=== PATIENT | female | born 1965 | race African-American/Black ===

== ENCOUNTER 2024-03-22 13:18 | Inpatient (IN) | payer OTHER, MEDICAID ==
[~2024-03-22 13:18] MED LIST: Iopamidol-370 76% 500 ML MDV (1 ML CHARGE) ONE
[2024-03-22 14:24] LABS: Hematocrit 34.8 % (36.0-47.0); Hemoglobin 11.7 g/dL (12.0-16.0); Mean Corpuscular HGB CONC 33.6 g/dL (32.0-36.0); Mean Corpuscular Hemoglobin 26.2 pg (27.0-31.0); Mean Corpuscular Volume 77.9 fL (78.0-98.0); Mean Platelet Volume 10.5 fL (7.4-10.4); Platelet Count 137 10x3/uL (130-400); RBC Distribution Width 14.9 % (11.5-14.5); Red Blood Cell (RBC) Count 4.47 mill/uL (4.20-5.40)
[2024-03-22 14:26] LABS: Bacteria/HPF None Seen HPF (None Seen); Bilirubin Negative (Negative); Blood, Urine Negative (Negative); CAUTI Indications for Culture Pelvic or flank pain; Clarity Clear (Clear); Glucose, Urine (Dipstick) Normal (Negative); Ketone, Urine Negative (Negative); Leukocyte Negative Leu/uL (Negative); Nitrite Negative (Negative); Protein, Urine (Dipstick) Negative (Neg-Trace); RBC/HPF 0-3 HPF (0-3); Specific Gravity, Urine 1.003 (1.002-1.036); Squamous Epithelial 0-3 HPF (0-3); Urobilinogen Normal mg/dL (Less than 2); WBC/HPF 0-3 HPF (0-3); pH, Urine 6.5 (5.0-9.0)
[2024-03-22 14:27] LABS: Urine Culture Reflex No No
[2024-03-22 14:39] LABS: ALT (SGPT) 26 U/L (8-55); AST (SGOT) 22 U/L (5-34); Albumin 3.4 g/dL (3.5-5.0); Alkaline Phosphatase 119 U/L (40-110); Anion Gap 14 mmol/L (10-20); BUN (Urea Nitrogen) 9 mg/dL (9.8-20.1); Bilirubin, Total 0.4 mg/dL (0.2-1.2); Calc. Creatinine Clearance 0 mL/min (70-130); Calcium 10.2 mg/dL (7.8-10.44); Carbon Dioxide 27 mmol/L (22-29); Chloride 101 mmol/L (98-107); Estimated GFR 75; Globulin 2.8 g/dL (2.4-3.5); Glucose 90 mg/dL (70-105); Lipase 17 U/L (8-78); Magnesium 1.6 mg/dL (1.6-2.6); Protein, Total 6.2 g/dL (6.0-8.3); Sodium 138 mmol/L (136-145)
[2024-03-22 14:41] LABS: Troponin I 0.014 ng/mL (< 0.028)
[2024-03-22 14:46] LABS: Band 4 % (5-11); Lymphocytes 28 % (21-51); Microcytosis SLIGHT = 6-15 cells HPF (0-5); Monocytes 10 % (0-10); Neutrophil 53 % (42-75); Nucleated RBC (Manual Ct) 1 % (0); Platelet Adequacy Comment Platelets Normal; Polychromasia SLIGHT = 2-3 cells HPF (0-2); Reactive Lymphocytes 5 % (0-10); Toxic Granulation SLIGHT; Vacuoles SLIGHT
[2024-03-22] MEDS ORDERED: Acetaminophen 325 MG TAB PO PRN (17:05)
[2024-03-22] MEDS ORDERED: Morphine 2 MG/ML VIAL SLOW IVP PRN (17:06)
[2024-03-22] MEDS ORDERED: Morphine 4 MG/ML VIAL SLOW IVP PRN (17:08)
[2024-03-22] MEDS ORDERED: Enoxaparin 60 MG (0.6 mL) SYRINGE ONE (17:28)
[2024-03-22 18:55] VITALS: BMI 47.8
[2024-03-22] MEDS: Famotidine 20 MG TAB PO SCH (20:40)
[2024-03-22] MEDS: Ondansetron ODT 4 MG TAB PO PRN (20:41)
[2024-03-23 02:55] LABS: Hematocrit 35.3 % (36.0-47.0)
[2024-03-23 06:50] LABS: Hematocrit 35.1 % (36.0-47.0); Hemoglobin 11.9 g/dL (12.0-16.0); Mean Corpuscular HGB CONC 33.9 g/dL (32.0-36.0); Mean Corpuscular Hemoglobin 25.7 pg (27.0-31.0); Mean Corpuscular Volume 75.8 fL (78.0-98.0); Mean Platelet Volume 9.5 fL (7.4-10.4); Platelet Count 129 10x3/uL (130-400); RBC Distribution Width 15.1 % (11.5-14.5); Red Blood Cell (RBC) Count 4.63 mill/uL (4.20-5.40)
[2024-03-23 07:05] LABS: Anion Gap 16 mmol/L (10-20); BUN (Urea Nitrogen) 8 mg/dL (9.8-20.1); Calc. Creatinine Clearance 87 mL/min (70-130); Calcium 10.7 mg/dL (7.8-10.44); Carbon Dioxide 25 mmol/L (22-29); Chloride 102 mmol/L (98-107); Estimated GFR 46; Glucose 95 mg/dL (70-105); Sodium 139 mmol/L (136-145)
[2024-03-23 08:12] LABS: Burr Cells SLIGHT = 2-5 cells HPF (0-1); Lymphocytes 25 % (21-51); Macrocytosis SLIGHT = 6-15 cells HPF (0-5); Monocytes 10 % (0-10); Neutrophil 65 % (42-75); Platelet Adequacy Comment Platelets Normal; Polychromasia SLIGHT = 2-3 cells HPF (0-2)
[2024-03-23] MEDS: Enoxaparin 120 MG/0.8 ML SYRINGE SC SCH (09:25)
[2024-03-23] MEDS: Lactated Ringer's 1,000 ML IV SCH ×2 (09:27→20:17)
[2024-03-23] MEDS ORDERED: Albuterol 200 PUFF INH INH PRN (15:55)
[2024-03-23] MEDS ORDERED: Prochlorperazine Maleate 5 MG TAB PO PRN (15:55)
[2024-03-23] MEDS: Dexamethasone 4 MG TAB PO SCH (15:56)
[2024-03-23] MEDS: Atorvastatin Calcium 40 MG TAB PO SCH (20:17)
[2024-03-23] MEDS: busPIRone HCl 10 MG TAB PO SCH (20:18)
[2024-03-23] MEDS: Benztropine 1 MG TAB PO SCH (20:18)
[2024-03-24] MEDS: Levothyroxine Sodium 112 MCG TAB PO SCH (05:29)
[2024-03-24 06:09] LABS: Hematocrit 34.4 % (36.0-47.0); Hemoglobin 11.6 g/dL (12.0-16.0); Mean Corpuscular HGB CONC 33.7 g/dL (32.0-36.0); Mean Corpuscular Hemoglobin 26.1 pg (27.0-31.0); Mean Corpuscular Volume 77.5 fL (78.0-98.0); Mean Platelet Volume 10.1 fL (7.4-10.4); Platelet Count 134 10x3/uL (130-400); RBC Distribution Width 14.7 % (11.5-14.5); Red Blood Cell (RBC) Count 4.44 mill/uL (4.20-5.40)
[2024-03-24 06:15] LABS: Anion Gap 15 mmol/L (10-20); BUN (Urea Nitrogen) 6 mg/dL (9.8-20.1); Calc. Creatinine Clearance 139 mL/min (70-130); Calcium 10.4 mg/dL (7.8-10.44); Carbon Dioxide 21 mmol/L (22-29); Chloride 106 mmol/L (98-107); Estimated GFR 81; Glucose 159 mg/dL (70-105); Potassium 4.7 mmol/L (3.5-5.1); Sodium 137 mmol/L (136-145)
[2024-03-24 06:35] LABS: Band 5 % (5-11); Hypochromia SLIGHT = 6-15 cells HPF (0-5); Lymphocytes 8 % (21-51); Microcytosis SLIGHT = 6-15 cells HPF (0-5); Monocytes 2 % (0-10); Neutrophil 84 % (42-75); Platelet Adequacy Comment Platelets Normal; Polychromasia SLIGHT = 2-3 cells HPF (0-2)
[2024-03-24] MEDS ORDERED: Furosemide 40 MG TAB PO SCH (09:00)
[2024-03-24] MEDS: Ezetimibe 10 MG TAB PO SCH (09:20)
[2024-03-24] MEDS: dilTIAZem CD 120 MG CAP PO SCH (09:21)
[2024-03-24] MEDS: diphenhydrAMINE 25 MG CAP PO SCH (09:21)
[2024-03-24] MEDS: Potassium Chloride 20 MEQ TAB PO SCH (09:24)
[2024-03-24] MEDS: Pantoprazole DR 40 MG TAB PO SCH (09:24)
[2024-03-24] MEDS: Aspirin 81 mg Enteric Coated Tablet PO SCH (09:24)
[2024-03-24] MEDS: Gabapentin 300 MG CAP PO SCH (09:29)
[2024-03-24] MEDS ORDERED: Iopamidol-370 76% 500 ML MDV (1 ML CHARGE) ONE (11:24)
[2024-03-24 16:25] VITALS: BP 123/77; TEMP 97.9
[2024-03-25] MEDS ORDERED: Furosemide 40 MG TAB PO SCH (09:00)
== END 2024-03-24 17:16 | disposition home or self-care (01) | DRG 392 ==
LOC: ERS 13:18 → 2SW 16:56 → OBSVTOIN 03-23 08:31
PROVIDERS: ADMIT Student in an Organized Health Care Education/Training Program; ATTEND Hospitalist
DX: R11.2 Nausea with vomiting, unspecified (principal); N17.9 Acute kidney failure, unspecified; C50.912 Malignant neoplasm of unspecified site of left female breast; Z51.11 Encounter for antineoplastic chemotherapy; Z86.711 Personal history of pulmonary embolism; I10 Essential (primary) hypertension; Z79.899 Other long term (current) drug therapy; Z79.84 Long term (current) use of oral hypoglycemic drugs
CPT/HCPCS: 36415; 71275; 74177; 80048; 80053; 81001; 83690; 83735; 83880; 84484; 85025; 93005; 93010; 93970; 96360; 96372; J1650; J7120; J8540; Q0162; Q9967

== ENCOUNTER 2024-04-15 14:57 | Emergency (ER) | payer OTHER, MEDICAID ==
[2024-04-15] MEDS ORDERED: Ondansetron PF 4 MG/2 ML Vial ONE (15:45)
[2024-04-15 17:03] LABS: Hematocrit 34.8 % (36.0-47.0); Hemoglobin 11.8 g/dL (12.0-16.0); Mean Corpuscular HGB CONC 33.9 g/dL (32.0-36.0); Mean Corpuscular Hemoglobin 26.2 pg (27.0-31.0); Mean Corpuscular Volume 77.3 fL (78.0-98.0); Mean Platelet Volume 10.6 fL (7.4-10.4); Platelet Count 232 10x3/uL (130-400); RBC Distribution Width 16.8 % (11.5-14.5)
[2024-04-15 17:31] LABS: Band 8 % (5-11); Burr Cells SLIGHT = 2-5 cells HPF (0-1); Lymphocytes 28 % (21-51); Metamyelocyte 1 % (0-0); Microcytosis SLIGHT = 6-15 cells HPF (0-5); Monocytes 18 % (0-10); Myelocyte 3 % (0-0); Neutrophil 42 % (42-75); Nucleated RBC (Manual Ct) 2 % (0); Ovalocytes SLIGHT = 2-5 cells HPF (0-1); Platelet Adequacy Comment Platelets Normal; Polychromasia SLIGHT = 2-3 cells HPF (0-2); Vacuoles MODERATE
[2024-04-15 17:54] LABS: ALT (SGPT) 23 U/L (8-55); AST (SGOT) 18 U/L (5-34); Albumin 3.7 g/dL (3.5-5.0); Alkaline Phosphatase 135 U/L (40-110); Anion Gap 18 mmol/L (10-20); BUN (Urea Nitrogen) 10 mg/dL (9.8-20.1); Bilirubin, Total 0.4 mg/dL (0.2-1.2); CK (CPK) 31 U/L (29-168); Calc. Creatinine Clearance 0 mL/min (70-130); Calcium 11.4 mg/dL (7.8-10.44); Carbon Dioxide 28 mmol/L (22-29); Chloride 98 mmol/L (98-107); Estimated GFR 55; Globulin 3.1 g/dL (2.4-3.5); Glucose 102 mg/dL (70-105); Lipase 14 U/L (8-78); Protein, Total 6.8 g/dL (6.0-8.3); Sodium 140 mmol/L (136-145)
[2024-04-15 17:59] LABS: Troponin I 0.013 ng/mL (< 0.028)
[2024-04-15 19:55] LABS: Bacteria/HPF None Seen HPF (None Seen); Bilirubin Negative (Negative); Blood, Urine Negative (Negative); CAUTI Indications for Culture Dysuria,urgency,freq; Clarity Clear (Clear); Glucose, Urine (Dipstick) Normal (Negative); Ketone, Urine Negative (Negative); Leukocyte Negative Leu/uL (Negative); Nitrite Negative (Negative); Protein, Urine (Dipstick) Negative (Neg-Trace); Urobilinogen Normal mg/dL (Less than 2); WBC/HPF 0-3 HPF (0-3)
[2024-04-15 20:02] LABS: Specific Gravity, Urine 1.057 (1.002-1.036)
[2024-04-15 20:03] LABS: Urine Culture Reflex No No
== END 2024-04-15 20:18 | disposition home or self-care (01) ==
LOC: ERS 14:57
DX: M62.81 Muscle weakness (generalized) (principal); R11.2 Nausea with vomiting, unspecified
CPT/HCPCS: 71045; 74177; 80053; 81001; 82550; 83690; 84484; 85025; 93005; J2405; Q9967; 36415; 96374

== ENCOUNTER 2024-10-08 12:01 | Emergency (ER) | payer OTHER, MEDICAID ==
[2024-10-08 13:57] LABS: Bacteria/HPF None Seen HPF (None Seen); Bilirubin Negative (Negative); Blood, Urine 3+ (Negative); CAUTI Indications for Culture Pelvic or flank pain; Clarity Clear (Clear); Glucose, Urine (Dipstick) Normal (Negative); Ketone, Urine Negative (Negative); Leukocyte Negative Leu/uL (Negative); Nitrite Negative (Negative); Protein, Urine (Dipstick) Negative (Neg-Trace); RBC/HPF Greater than 50 HPF (0-3); Specific Gravity, Urine 1.012 (1.002-1.036); Squamous Epithelial 0-3 HPF (0-3); Urobilinogen Normal mg/dL (Less than 2); WBC/HPF 0-3 HPF (0-3); pH, Urine 5.5 (5.0-9.0)
[2024-10-08 13:58] LABS: Urine Culture Reflex No No
[2024-10-08 14:28] LABS: Hematocrit 41.2 % (36.0-47.0); Hemoglobin 13.2 g/dL (12.0-16.0); Mean Corpuscular Hemoglobin 26.7 pg (27.0-31.0); Mean Corpuscular Volume 83.2 fL (78.0-98.0); Platelet Count 147 10x3/uL (130-400); RBC Distribution Width 15.7 % (11.5-14.5); Red Blood Cell (RBC) Count 4.95 mill/uL (4.20-5.40)
[2024-10-08 14:39] LABS: Calc. Creatinine Clearance 0 mL/min (70-130); Estimated GFR 47
[2024-10-08 14:41] LABS: ALT (SGPT) 11 U/L (8-55); AST (SGOT) 14 U/L (5-34); Albumin 3.1 g/dL (3.4-4.8); Alkaline Phosphatase 185 U/L (40-110); Anion Gap 14 mmol/L (10-20); BUN (Urea Nitrogen) 9 mg/dL (9.8-20.1); Bilirubin, Total 0.4 mg/dL (0.2-1.2); Calcium 10.2 mg/dL (7.8-10.44); Carbon Dioxide 19 mmol/L (23-31); Chloride 112 mmol/L (98-107); Globulin 4.3 g/dL (2.4-3.5); Glucose 68 mg/dL (80-115); Potassium 4.2 mmol/L (3.5-5.1); Protein, Total 7.4 g/dL (5.8-8.1); Sodium 141 mmol/L (136-145)
[2024-10-08 14:51] LABS: INR-International Normal Ratio 1.2; Prothrombin Time 15.6 sec (12.0-14.7)
[2024-10-08 14:56] LABS: Burr Cells SLIGHT = 2-5 cells HPF (0-1); Eosinophils 3 % (0-10); Lymphocytes 25 % (21-51); Macrocytosis SLIGHT = 6-15 cells HPF (0-5); Monocytes 10 % (0-10); Neutrophil 61 % (42-75); Ovalocytes SLIGHT = 2-5 cells HPF (0-1); Platelet Adequacy Comment Platelets Normal; Polychromasia SLIGHT = 2-3 cells HPF (0-2); Smudge Cells 7.9 %
[2024-10-08 14:57] LABS: PTT 17.4 sec (22.9-36.1)
== END 2024-10-08 17:02 | disposition home or self-care (01) ==
LOC: ERS 12:01
DX: N93.9 Abnormal uterine and vaginal bleeding, unspecified (principal); Z79.01 Long term (current) use of anticoagulants; Z87.891 Personal history of nicotine dependence; Z86.711 Personal history of pulmonary embolism; Z86.718 Personal history of other venous thrombosis and embolism
CPT/HCPCS: 76830; 76856; 80053; 81001; 85025; 85610; 85730; 86850; 86900; 86901; J1642; 36415; 96360; 96361